=== PATIENT | male | born 1990 | race Caucasian/White ===

== ENCOUNTER 2017-04-29 05:12 | Emergency (ER) | payer SELFPAY ==
[2017-04-29] VITALS (23 sets, daily range): BP systolic 97–127; BP diastolic 43–80
[~2017-04-29] VITALS: Ht 165.1 cm; Wt 56.7 kg
--- NOTE | 2017-04-29 05:21 | Emergency Room Report ---
History of Present Illness General Chief Complaint: Overdose Source: EMS Present Illness HPI This is an approximately 27-year-old male who present with a drug overdose. Patient was in the parking lot of a [employer]. He was naked and 911 was called. Police came unseen first. He gave him an different name. He admit to using methamphetamine. On arrival by EMS, he said his name was Wesly Cherry. When he was placed in handcuffs, he became combative. EMS gave him 5 mg of Versed IM. He promptly fell asleep. There was no trauma. No other injury. History is limited at this moment on patient. He is not verbal. Allergies: Coded Allergies: No Known Allergies (Unverified , 04/29/17) Patient History Past Medical History: see triage record, old chart reviewed, unable to obtain Past Surgical History: unable to obtain Pertinent Family History: unable to obtain Social History: Reports: drug use Immunizations: other Reviewed Nursing Documentation: PMH: Agreed, PSxH: Agreed Nursing Documentation-PMH Past Medical History: No Stated History Review of Systems All Other Systems: limited - Patient is sedatedand nonverbal Physical Exam Vital Signs Date Time Temp Pulse Resp B/P (MAP) Pulse Ox O2 Delivery O2 Flow Rate FiO2 04/29/17 05:13 96 18 97/43 98 Room Air vitals unremarkable Sp02 EP Interpretation: reviewed, normal General Appearance: well appearing, no apparent distress, other - Sleeping Head: normocephalic, atraumatic Eyes: bilateral eye PERRL, bilateral eye EOMI ENT: normal pharynx Neck: full range of motion, supple, no meningismus Respiratory: chest non-tender, lungs clear, normal breath sounds Cardiovascular #1: regular rate, rhythm, no murmur Gastrointestinal: normal bowel sounds, non tender, no mass, no organomegaly, no bruit, non-distended Musculoskeletal: back normal, normal range of motion Neurologic: grossly normal - Withdraws to painful stimuli in all 4 extremities Psychiatric: mood/affect normal Skin: warm/dry Medical Decision Making Diagnostic Impression: Primary Impression: Drug overdose Qualified Codes: T50.901A - Poisoning by unspecified drugs, medicaments and biological substances, accidental (unintentional), initial encounter ER Course Patient presents with agitation secondary to methamphetamine abuse/overdose. He was sedated with her said by EMS. He is more awake now. He still would not give me his name. We'll observe him until clinical sobriety. I see no trauma to warrant CT scan or x-rays. No focal deficit to indicate CVA or TIA. he may have other drugs or alcohol on board but show no evidence of any toxidrome. Last Vital Signs Date Time Temp Pulse Resp B/P (MAP) Pulse Ox O2 Delivery O2 Flow Rate FiO2 04/29/17 05:13 96 18 97/43 98 Room Air Status: improved Disposition: HOME, SELF-CARE Condition: Stable Patient Instructions: OVERDOSE, Accidental (Adult) Additional Instructions: Abstain from drugs and alcohol. Followup with your Dr. in 7 days. Return if worse. DAWIT PETERS M.D. Apr 29, 2017 05:21
[2017-04-29] MEDS ORDERED: UNOBMED (06:41)
[2017-04-29 10:06] LABS: BASOPHILS % (AUTO) 1.2 % (0.0-2.0); EOSINOPHILS % (AUTO) 2.6 % (0.0-3.0); LYMPHOCYTES % (AUTO) 29.3 % (20.0-45.0); MEAN CORPUSCULAR HEMOGLOBIN 25.6 PG (27.0-31.0); MEAN CORPUSCULAR HGB CONC 31.3 G/DL (32.0-36.0); MEAN CORPUSCULAR VOLUME 82 FL (80-99); MONOCYTES % (AUTO) 13.9 % (1.0-10.0); NEUTROPHILS % (AUTO) 53.1 % (45.0-75.0); PLATELET COUNT 344 K/UL (150-450); RED BLOOD COUNT 4.96 M/UL (4.70-6.10); RED CELL DISTRIBUTION WIDTH 16.2 % (11.6-14.8); WHITE BLOOD COUNT 7.1 K/UL (4.8-10.8)
[2017-04-29 10:18] LABS: APPEARANCE,URINE CLEAR; KETONES,URINE NEGATIVE (NEGATIVE); LEUKOCYTE ESTERASE ,URINE NEGATIVE (NEGATIVE); NITRITE,URINE NEGATIVE (NEGATIVE); PH,URINE 6 (4.5-8.0); PROTEIN,URINE NEGATIVE (NEGATIVE); UROBILINOGEN,URINE NORMAL MG/DL (0.0-1.0)
[2017-04-29 10:25] LABS: ALANINE AMINOTRANSFERASE 17 U/L (3-41); ALBUMIN/GLOBULIN RATIO 1.2 (1.0-2.7); ALCOHOL < 10 mg/dL; ANION GAP 10 (5-15); ASPARTATE AMINO TRANSFERASE 27 U/L (5-40); CARBON DIOXIDE 26 mEQ/L (20-30); CHLORIDE 106 mEQ/L (98-107); CREATININE 0.9 mg/dL (0.7-1.2); GLOMERULAR FILTRATION RATE > 60 mL/min (>60); HEMOLYSIS 5; POTASSIUM 3.6 mEQ/L (3.4-4.9); SODIUM 142 mEQ/L (135-145); TOTAL PROTEIN 7.3 g/dL (6.6-8.7)
[2017-04-29 10:28] LABS: ACETAMINOPHEN < 10 ug/mL (10-30)
--- NOTE | 2017-04-29 17:10 | Consultation ---
History of Present Illness General Chief Complaint: Overdose Present Illness HPI 26 yo male with history of "bipolar disorder" s/p drug overdose. the pt was naked and was brought in to ED. He is in [place]. the pt is uncooperative and confused. he knew his name and date of . He stated that he has taken ativan and klonopin. the pt was disorganized and delusional. the pt is unable to provide meaningful history. Allergies: Coded Allergies: No Known Allergies (Unverified , 04/29/17) Medication History Miscellaneous Medications Unable to Obtain Medications (Unable To Obtain Meds), (Reported) Patient History Healthcare decision maker Resuscitation status Advanced Directive on File Past Medical/Surgical History Past Medical/Surgical History: (1) Drug overdose Review of Systems Constitutional: Reports: malaise, weakness Psychiatric: Reports: anxiety, emotional problems, hallucinations Physical Exam General Appearance: no apparent distress, alert, confused, thin Neurologic: alert, responsive, depressed affect Last 24 Hour Vital Signs Date Time Temp Pulse Resp B/P (MAP) Pulse Ox O2 Delivery O2 Flow Rate FiO2 04/29/17 13:36 97.8 91 17 117/64 99 Room Air 04/29/17 13:15 101 15 99 Room Air 04/29/17 13:00 99 17 99 Room Air 04/29/17 12:45 102 17 99 Room Air 04/29/17 12:30 102 17 99 Room Air 04/29/17 12:15 89 15 99 Room Air 04/29/17 12:00 92 17 99 Room Air 04/29/17 11:45 96 15 99 Room Air 04/29/17 11:30 94 15 99 Room Air 04/29/17 11:24 97.8 91 14 117/74 99 Room Air 04/29/17 11:15 92 15 99 Room Air 04/29/17 11:00 91 15 99 Room Air 04/29/17 10:45 94 15 99 Room Air 04/29/17 10:30 98 15 99 Room Air 04/29/17 09:36 97.8 96 17 102/56 99 Room Air 04/29/17 06:24 97.8 93 15 105/48 99 Room Air 04/29/17 05:20 96 18 Room Air 04/29/17 05:20 97.5 96 17 97/43 98 Room Air 04/29/17 05:13 96 18 97/43 98 Room Air Intake and Output 04/29/17 04/30/17 19:00 07:00 Intake Total 1300 ml Balance 1300 ml IV Total 1300 ml Laboratory Tests Test 04/29/17 09:45 White Blood Count 7.1 K/UL (4.8-10.8) Red Blood Count 4.96 M/UL (4.70-6.10) Hemoglobin 12.7 G/DL (14.2-18.0) L Hematocrit 40.6 % (42.0-52.0) L Mean Corpuscular Volume 82 FL (80-99) Mean Corpuscular Hemoglobin 25.6 PG (27.0-31.0) L Mean Corpuscular Hemoglobin Concent 31.3 G/DL (32.0-36.0) L Red Cell Distribution Width 16.2 % (11.6-14.8) H Platelet Count 344 K/UL (150-450) Mean Platelet Volume 6.0 FL (6.5-10.1) L Neutrophils (%) (Auto) 53.1 % (45.0-75.0) Lymphocytes (%) (Auto) 29.3 % (20.0-45.0) Monocytes (%) (Auto) 13.9 % (1.0-10.0) H Eosinophils (%) (Auto) 2.6 % (0.0-3.0) Basophils (%) (Auto) 1.2 % (0.0-2.0) Urine Color Yellow Urine Appearance Clear Urine pH 6 (4.5-8.0) Urine Specific Donora 1.020 (1.005-1.035) Urine Protein Negative (NEGATIVE) Urine Glucose (UA) Negative (NEGATIVE) Urine Ketones Negative (NEGATIVE) Urine Occult Blood Negative (NEGATIVE) Urine Nitrite Negative (NEGATIVE) Urine Bilirubin Negative (NEGATIVE) Urine Urobilinogen Normal MG/DL (0.0-1.0) Urine Leukocyte Esterase Negative (NEGATIVE) Sodium Level 142 mEQ/L (135-145) Potassium Level 3.6 mEQ/L (3.4-4.9) Chloride Level 106 mEQ/L (98-107) Carbon Dioxide Level 26 mEQ/L (20-30) Anion Gap 10 (5-15) Blood Urea Nitrogen 14 mg/dL (7-23) Creatinine 0.9 mg/dL (0.7-1.2) Estimat Glomerular Filtration Rate > 60 mL/min (>60) Glucose Level 98 mg/dL (74-106) Calcium Level 9.0 mg/dL (8.6-10.2) Total Bilirubin 0.3 mg/dL (0.0-1.2) Aspartate Amino Transf (AST/SGOT) 27 U/L (5-40) Alanine Aminotransferase (ALT/SGPT) 17 U/L (3-41) Alkaline Phosphatase 62 U/L (40-129) Total Creatine Kinase 594 U/L (38-174) H Total Protein 7.3 g/dL (6.6-8.7) Albumin 4.0 g/dL (3.5-5.2) Globulin 3.3 g/dL Albumin/Globulin Ratio 1.2 (1.0-2.7) Salicylates Level < 1 mg/dL (10-30) L Urine Opiates Screen Negative (NEGATIVE) Acetaminophen Level < 10 ug/mL (10-30) L Urine Barbiturates Screen Negative (NEGATIVE) Phencyclidine (PCP) Screen Negative (NEGATIVE) Urine Amphetamines Screen Positive (NEGATIVE) H Urine Benzodiazepines Screen Positive (NEGATIVE) H Urine Cocaine Screen Negative (NEGATIVE) Urine Marijuana (THC) Screen Negative (NEGATIVE) Serum Alcohol < 10 mg/dL Height (Feet): 5 Height (Inches): 5.00 Weight (Pounds): 125 Medications Current Medications Medications (Trade) Dose Ordered Sig/Rene Route PRN Reason Start Time Stop Time Status Last Admin Dose Admin Sodium Chloride 1,000 ml @ 300 mls/hr [id number] IV 04/29/17 08:30 05/29/17 08:29 04/29/17 08:42 Assessment/Plan Status: stable Assessment/Plan Schizophrenia vs schizoaffective d/o bipolar type. the pt agrees to go to psych unit risperdal 2mg qhs the pt is gravely disabled. Nelson Swanson M.D. Apr 29, 2017 17:10
== END 2017-04-29 18:10 | disposition home or self-care (01) ==
LOC: EDBD 05:12 → EMR 05:25 → EDBD 05:25 → EMR 18:10
DX: T43.621A Poisoning by amphetamines, accidental (unintentional), initial encounter (principal); Y92.89 Other specified places as the place of occurrence of the external cause; R45.1 Restlessness and agitation
CPT/HCPCS: 36415; 80053; 80300; 81003; 82550; 85025; 96361; 96374; 99284; G0480; 80329